=== PATIENT | male | born 1995 | race Caucasian/White ===

== ENCOUNTER 2021-12-19 18:16 | Emergency (ER) | payer OTHER ==
[2021-12-19 18:45] LABS: BASOPHIL 0.4 % (0-2); EOSINOPHIL 3.2 % (0-5); HCT 50.5 % (42.0-52.0); HGB 16.6 g/dl (13.2-18.0); LYMPHOCYTE 21.2 % (15-48); MCH 27.9 pg (25.0-31.0); MCHC 32.9 g/dL (32.0-36.0); MCV 84.7 fL (78.0-100.0); MONOCYTE 5.8 % (0-12); MPV 9.5 fL (6.0-9.5); NEUTROPHIL 69.1 % (41-80); NRBC 0; PLT 276 K/uL (150-400); RBC 5.96 M/uL (4.70-6.00); RDW 14.1 % (11.5-14.0); WBC 10.4 K/uL (4.0-10.5)
[2021-12-19 18:59] LABS: BUN/CREAT RATIO (CALC) 7.8 RATIO; CREATININE 1.02 mg/dL (0.67-1.17); POTASSIUM 4.6 mmol/L (3.5-5.1)
== END 2021-12-19 19:01 | disposition left against medical advice (07) ==
LOC: FER 18:16
PROVIDERS: Emergency Medicine
DX: R56.9 Unspecified convulsions (principal); Z53.8 Procedure and treatment not carried out for other reasons
CPT/HCPCS: 36415; 80048; 85025; 99281; J1953

== ENCOUNTER 2022-03-28 08:53 | Emergency (ER) | payer OTHER | END 2022-03-28 10:46 | disposition home or self-care (01) | LOC: FER 08:53 | DX: G40.909 Epilepsy, unspecified, not intractable, without status epilepticus (principal); Z28.311 Partially vaccinated for COVID-19 | CPT/HCPCS: 70450 ==

== ENCOUNTER 2022-06-02 19:11 | Emergency (ER) | payer OTHER | END 2022-06-02 22:40 | disposition home or self-care (01) | LOC: FER 19:11 | DX: G40.909 Epilepsy, unspecified, not intractable, without status epilepticus (principal); F17.200 Nicotine dependence, unspecified, uncomplicated; Z79.899 Other long term (current) drug therapy | CPT/HCPCS: 99284 ==

== ENCOUNTER 2022-06-25 09:53 | Emergency (ER) | payer OTHER ==
[2022-06-25 10:11] LABS: BASOPHIL 0.6 % (0-2); EOSINOPHIL 4.7 % (0-5); HCT 52.3 % (42.0-52.0); HGB 17.3 g/dl (13.2-18.0); LYMPHOCYTE 28.5 % (15-48); MCH 27.5 pg (25.0-31.0); MCHC 33.1 g/dL (32.0-36.0); MONOCYTE 7.2 % (0-12); MPV 9.5 fL (6.0-9.5); NEUTROPHIL 58.7 % (41-80); NRBC 0; PLT 244 K/uL (150-400); RDW 12.7 % (11.5-14.0); WBC 8.9 K/uL (4.0-10.5)
[2022-06-25 10:26] LABS: BILIRUBIN NEGATIVE (NEGATIVE); BLOOD 1+ Ery/uL (NEGATIVE); CLARITY CLEAR (CLEAR); COLOR YELLOW (YELLOW); GLUCOSE (U) NORMAL (NORMAL); LEUKOCYTES NEGATIVE Leu/uL (NEGATIVE); NITRITE NEGATIVE (NEGATIVE); PROTEIN 1+ mg/dL (NEGATIVE); UROBILINOGEN 0.2 mg/dL (0.2-1.0)
[2022-06-25 10:32] LABS: AMPHETAMINES NEGATIVE (NEGATIVE); BARBITURATES NEGATIVE (NEGATIVE); ECSTASY (MDMA) NEGATIVE (NEGATIVE); MARIJUANA (THC) NEGATIVE (NEGATIVE); METHADONE NEGATIVE (NEGATIVE); OPIATES NEGATIVE (NEGATIVE); OXYCODONE NEGATIVE (NEGATIVE)
[2022-06-25 10:32] LABS: BILIRUBIN - TOTAL 0.2 mg/dL (0.2-1.0); BUN/CREAT RATIO (CALC) 9.7 RATIO; CREATININE 1.13 mg/dL (0.67-1.17); MAGNESIUM 1.9 mg/dL (1.8-2.4); POTASSIUM 3.8 mmol/L (3.5-5.1)
[2022-06-25 10:41] LABS: BACTERIA 1+
[2022-06-25 10:42] LABS: MUCOUS TRACE
== END 2022-06-25 14:10 | disposition home or self-care (01) ==
LOC: FER 09:53
PROVIDERS: Emergency Medicine
DX: G40.909 Epilepsy, unspecified, not intractable, without status epilepticus (principal); F17.210 Nicotine dependence, cigarettes, uncomplicated; Z79.899 Other long term (current) drug therapy
CPT/HCPCS: 36415; 70450; 80053; 80305; 81001; 83735; 85025; 93005; J1885; J1953; J7030